=== PATIENT | female | born 1970 | race Caucasian/White ===

== ENCOUNTER → 2016-08-03 | Outpatient (CLI) | payer BC ==
[~2016-08-03] MED LIST: BACL10TA PO; DIAZ2TAB PO; DIVA250T PO; FLUD0.1T10 PO; GADAVIST IV PRN; MAGN400T6 PO; MISCCAP80; OXYC-609 PO; POTA10CA28 PO; PRLSR20 PO; PROP20TA67 PO; SUMA100T16 PO; TIZA2CAP PO
--- NOTE | 2016-08-03 10:29 | DIAGNOSTIC IMAGING REPORT ---
KUB CLINICAL HISTORY: KUB NEEDED BEFORE MRI TO CHECK PAIN PUMP ORIENTATION COMPARISON STUDY: None. FINDINGS: A right lower quadrant intrathecal pump is noted. The pump is not connected. Orientation is satisfactory for MRI. Bowel gas pattern is normal. IMPRESSION: Right lower quadrant intrathecal pump. Orientation is satisfactory for MRI. Electronically signed by: Esteban Cummings M.D. 08/03/2016 10:27 AM Dictated Date/Time: 08/03/2016 10:22 AM
--- NOTE | 2016-08-03 13:39 | DIAGNOSTIC IMAGING REPORT ---
MRI ENTEROGRAPHY OF THE ABDOMEN AND PELVIS WITH AND WITHOUT CONTRAST CLINICAL HISTORY: Intestinal fistula. Potential of bladder/valvular fistulae and resultant concern for Crohn's disease. COMPARISON STUDY: No previous studies for comparison. TECHNIQUE: The patient ingested oral contrast. Utilizing a 1.5 Paz magnet and dedicated coil, multiplanar, multi echo imaging of the abdomen and pelvis was performed pre and postcontrast administration. Injection of 5.5 cc of Gadavist IV was uneventful. Post contrast imaging was performed utilizing dynamic enhancement. FINDINGS: Evaluation of the abdomen and pelvis is compromised due to susceptibility artifact from the right lower quadrant intrathecal pump. This particularly affects visualization of the right lower quadrant and specifically, the ileocecal region. However, there is no evidence for a bowel obstruction. No bowel wall thickening is identified within visualized portions of the bowel. The terminal ileum is obscured on this exam due to artifact. No fluid collection is identified to suggest an abscess. No fistula was identified within the abdomen or the pelvis. The liver, spleen, adrenal glands and pancreas are normal. There was no perianal or perirectal fistula. No was made of a 2.3 cm T2 hyperintense nonenhancing left ovarian lesion which could reflect a dominant follicle or cyst. IMPRESSION: Exam compromised by susceptibility artifact from the right lower quadrant intrathecal pump. This particularly affects visualization of the ileocecal region. However, no abnormalities within visualized portions of the bowel. No bowel obstruction. No fistula or abscess identified. Electronically signed by: Esteban Cummings M.D. 08/03/2016 1:37 PM Dictated Date/Time: 08/03/2016 12:18 PM
== END | disposition home or self-care (01) ==
LOC: C.MRIBC 09:10
PROVIDERS: ATTEND Internal Medicine
DX: K63.2 Fistula of intestine (principal); Z97.8 Presence of other specified devices

== ENCOUNTER → 2016-08-09 | Outpatient (CLI) | payer BC ==
--- NOTE | 2016-08-09 09:59 | DIAGNOSTIC IMAGING REPORT ---
MRI OF THE BRAIN WITHOUT AND WITH IV CONTRAST CLINICAL HISTORY: Vertigo, headaches COMPARISON STUDY: 04/10/2015 TECHNIQUE: Utilizing a 1.5 Paz magnet and dedicated coil, multiplanar, multiecho imaging of the brain was performed pre and postcontrast administration. IV administration of 8.5 mL of Gadavist contrast was uneventful. FINDINGS: Small focus of increased signal adjacent to the anterior horn left lateral ventricle. This is unchanged. A new punctate focus of increased signal medially adjacent to the anterior horn right lateral ventricle. No additional foci of increased signal. No abnormal signal characteristics of the optic radiations. Diffusion-weighted images show no evidence for an acute ischemic process. Postcontrast images show no evidence for abnormal postcontrast enhancement. IMPRESSION: 2 very small foci of increased signal adjacent to the anterior horns of the lateral ventricles. 2. This is most likely unremarkable given the patient's history of chronic headache. 3. Study is otherwise negative. Electronically signed by: Ian Corrigan M.D. 08/09/2016 9:58 AM Dictated Date/Time: 08/09/2016 9:53 AM
== END | disposition home or self-care (01) ==
LOC: C.MRIBC 08:57
PROVIDERS: ATTEND Psychiatry & Neurology Neurology
DX: G97.1 Other reaction to spinal and lumbar puncture (principal); R42 Dizziness and giddiness

== ENCOUNTER → 2016-11-19 | Outpatient (CLI) | payer BC ==
[~2016-11-19] MED LIST changes: -DIAZ2TAB PO; -GADAVIST IV PRN
== END | disposition home or self-care (01) ==
LOC: C.LAB1850 13:59
PROVIDERS: ATTEND Family Medicine
DX: L65.9 Nonscarring hair loss, unspecified (principal)

== ENCOUNTER → 2017-01-13 | Outpatient (CLI) | payer BC ==
--- NOTE | 2017-01-13 14:41 | DIAGNOSTIC IMAGING REPORT ---
SACRUM COCCYX MIN 2 VIEWS CLINICAL HISTORY: M53.3 Coccygeal pain. Pt with remote h/o injury when she sat down COMPARISON STUDY: None. FINDINGS: The sacrum and coccyx are intact. No fractures identified. Bilateral sacroiliac joints are within normal limits. Electronic pump is located within the right anterior abdomen. Presacral soft tissues are within normal limits. Calcification within the right deep pelvis favors a phlebolith. IMPRESSION: No fractures within the sacrum or coccyx. Electronically signed by: Alan Melara M.D. 01/13/2017 2:40 PM Dictated Date/Time: 01/13/2017 2:38 PM
== END | disposition home or self-care (01) ==
LOC: C.RAD1850 14:11
PROVIDERS: ATTEND Family Medicine
DX: M53.3 Sacrococcygeal disorders, not elsewhere classified (principal)

== ENCOUNTER → 2017-09-12 | Outpatient (CLI) | payer BC | END | disposition home or self-care (01) | LOC: C.LABSPEC 09-09 11:43 | PROVIDERS: ATTEND Family Medicine | DX: R33.9 Retention of urine, unspecified (principal); R39.15 Urgency of urination ==

== ENCOUNTER → 2018-01-06 | Outpatient (CLI) | payer BC ==
[~2018-01-06] MED LIST changes: +GADAVIST IV PRN
--- NOTE | 2018-01-06 07:58 | DIAGNOSTIC IMAGING REPORT ---
Brain MRI WITH AND WITHOUT CONTRAST HISTORY: DIPLOPIA TECHNIQUE: Multiplanar multisequence MRI of the brain was performed both before and after the intravenous administration of contrast. COMPARISON STUDY: Brain MRI 08/09/2016. FINDINGS: No areas of restricted diffusion to suggest acute infarction. The midline structures are intact. The paranasal sinuses and mastoid air cells are clear. The orbits are unremarkable. There is no mass, hematoma, midline shift. The major vascular flow-voids at the skull base are well-maintained. There are few punctate foci of T2 hyperintensity seen within the periventricular white matter. These remain unchanged and can be seen the setting of migraines or minimal microvascular ischemic change. No abnormal enhancement. IMPRESSION: No significant change compared to the prior study. No acute intracranial abnormality. Electronically signed by: Alan Melara M.D. 01/06/2018 7:57 AM Dictated Date/Time: 01/06/2018 7:48 AM
--- NOTE | 2018-01-06 08:44 | DIAGNOSTIC IMAGING REPORT ---
CERVICAL SPINE 2 OR 3 VIEWS HISTORY: Pain FLEX AND EXT ONLY COMPARISON: None. FINDINGS: The cervical spine is visualized from C1 through the superior endplate of T1. Evidence for an anterior fusion and corpectomy from C3 through C6. Disc spacers present at C3-C4. There is been resection of the spinous processes consistent with a decompression component. Patient is imaged in flexion as well as extension. Alignment is maintained throughout. There is no evidence for subluxation. Prevertebral soft tissues and the atlantodens interval are intact. IMPRESSION: 1. Findings consistent with an anterior cervical fusion and corpectomy from C3 through C6. 2. No evidence for subluxation with the patient in flexion and extension The above report was generated using voice recognition software. It may contain grammatical, syntax or spelling errors. Electronically signed by: Ian Corrigan M.D. 01/06/2018 8:43 AM Dictated Date/Time: 01/06/2018 8:42 AM
== END | disposition home or self-care (01) ==
LOC: C.MRIBC 06:48
PROVIDERS: ATTEND Psychiatry & Neurology Neurology
DX: M50.00 Cervical disc disorder with myelopathy, unspecified cervical region (principal); G97.0 Cerebrospinal fluid leak from spinal puncture; H53.2 Diplopia